=== PATIENT | female | born 1990 | race American Indian/Alaskan Native ===

== ENCOUNTER 2019-12-02 18:29 | Inpatient (IN) | payer OTHER, MEDICAID ==
[2019-12-02] MEDS ORDERED: LACTATED RINGERS 1,000 ML IV ONE (20:53)
[2019-12-02 21:23] LABS: Basophils % (Auto) 0.3 % (0.0-1.8); Eosinophils % (Auto) 0.4 % (0.0-4.3); Lymphocytes # (Auto) 1.9 K/mm3 (1.2-5.4); Mean Corpuscular HGB Conc 32 % (30-34); Mean Corpuscular Volume 65 fl (79-97); Monocytes # (Auto) 0.8 K/mm3 (0.0-0.8); Monocytes % (Auto) 9.2 % (0.0-7.3); Platelet Count 315 K/mm3 (140-440); Red Blood Count 3.39 M/mm3 (3.65-5.03); Red Cell Distribution Width 19.3 % (13.2-15.2)
[2019-12-02 21:45] LABS: Alanine Aminotransferase 9 units/L (7-56); Albumin 3.3 g/dL (3.9-5); BUN/Creatinine Ratio 12; Blood Urea Nitrogen 6 mg/dL (7-17); Calcium 8.8 mg/dL (8.4-10.2); Hemolysis Index 4
[2019-12-02] MEDS ORDERED: ONDANSETRON 4 MG/2 ML INJ IV PRN (22:38)
[2019-12-02] MEDS ORDERED: DOCUSATE SODIUM 100 MG CAP PO PRN (22:38)
[2019-12-02] MEDS ORDERED: ACETAMINOPHEN 325 MG TAB PO ONE (22:46)
--- NOTE | 2019-12-02 22:50 | History and Physical Report ---
History of Present Illness Date of examination: 12/02/19 Date of admission: 12/02/2019 Chief complaint: Contractions, vomiting. History of present illness: 29 year old female presents with complaint of contractions since 3 PM today and vomiting. Patient denies leaking of fluid or vaginal bleeding. Pt. reports good movement. Patient denies cough or shortness of breath. Patient states she receives care at [facility]; records are not available. significant for the following: obesity. labs have been drawn upon admission. Past History Past Medical History: no pertinent history (obesity) Past Surgical History: no surgical history [facility] History: denies: chlamydia, gonorrhea, hepatitis B, hepatitis C, herpes, HIV, syphilis, trichomonas Family/Genetic History: diabetes Social history: full code. denies: smoking, alcohol abuse, prescription drug abuse, IV drug use - Obstetrical History Expected Date of Delivery: 12/04/19 Actual Gestation: 39 Week(s) 6 Day(s) : 3 Para: 2 Hx # Term Pregnancies: 2 Number of Pregnancies: 0 Spontaneous Abortions: 0 Induced : 0 Number of Living Children: 2 Medications and Allergies Allergies Allergy/AdvReac Type Severity Reaction Status Date / Time No Known Allergies Allergy Unverified 01/12/16 18:46 Active Meds: Active Medications Docusate Sodium (Colace) 100 mg PO BID PRN PRN Reason: Constipation Ferrous Sulfate (Feosol) 325 mg PO TID [facility] Lactated Ringer's (Lactated Ringers) 1,000 mls @ 125 mls/hr IV DIRECT [facility] Multivitamins/Iron/Calcium ( Vitamin) 1 each PO QDAY [facility] Ondansetron HCl (Zofran) 4 mg IV Q8H PRN PRN Reason: Nausea And Vomiting Potassium Chloride (K-Dur) 10 meq PO ONCE ONE Stop: 12/02/19 22:43 Review of Systems All systems: negative (contractions, vomiting) - Vital Signs Vital signs: Vital Signs Pulse BP 103 H 110/58 12/02/19 18:49 12/02/19 18:49 Temp Pulse Resp BP Pulse Ox 100.3 F H 99 H 18 110/58 100 12/02/19 20:50 12/02/19 22:46 12/02/19 20:50 12/02/19 20:50 12/02/19 22:46 - Physical Exam Abdomen: Positive: normal appearance, soft, normal bowel sounds. Negative: distention, tenderness, guarding, rigidity Genitourinary (Female): Positive: normal external genitalia, normal perenium. Negative: perineal/vulvar lesions Vagina: Positive: normal moisture Cervix: Positive: ulceration. Negative: lesion, cyst noted, discharge, absent Uterus: Positive: enlarged Anus/Rectum: Positive: normal perianal skin Extremities: Positive: normal, edema - Obstetrical FHR: category 1 Uterine Contraction Monitor Mode: External Cervical Dilatation: 1.5 Cervical Effacement Percentage: 30 station: -3 Uterine Contraction Pattern: Irregular Results Result Diagrams: 12/02/19 21:10 12/02/19 21:10 Abnormal lab results 12/02/19 12/02/19 Range/Units 21:10 21:10 RBC 3.39 L (3.65-5.03) M/mm3 Hgb 7.0 L (10.1-14.3) gm/dl Hct 22.0 L (30.3-42.9) % MCV 65 L (79-97) fl MCH 21 L (28-32) pg RDW 19.3 H (13.2-15.2) % [place] % (Auto) 9.2 H (0.0-7.3) % Sodium 133 L (137-145) mmol/L Potassium 3.5 L (3.6-5.0) mmol/L Carbon Dioxide 18 L (22-30) mmol/L BUN 6 L (7-17) mg/dL Creatinine 0.5 L (0.7-1.2) mg/dL Albumin 3.3 L (3.9-5) g/dL All other labs normal. Assessment and Plan A: at 39 weeks, 5 days gestation. Maternal temp. elevation. P: Admit for observation. IV hydration. Labs. Continuous EFM. Consulted with Dr. Huggins re: this patient, complaints, interventions taken. No new orders received.
[2019-12-02] MEDS ORDERED: POTASSIUM CHLORIDE ER 10 MEQ TAB PO ONE (23:00)
[2019-12-02] MEDS ORDERED: LACTATED RINGERS 1,000 ML IV SCH (23:00)
[2019-12-03] MEDS ORDERED: fentaNYL 100 MCG/2 ML INJ IV ONE (00:03)
[2019-12-03] MEDS ORDERED: SODIUM CHLORIDE 0.9% 500 ML 500 ML IV ONE (06:20)
[2019-12-03 07:58] LABS: Bilirubin,Urine NEG (Negative); Blood,Urine NEG (Negative); Color,Urine Yellow (Yellow); Mucus,Urine FEW /HPF; Protein,Urine <15 mg/dL mg/dL (Negative); Urobilinogen,Urine < 2.0 mg/dL (<2.0)
[2019-12-03 08:05] LABS: Amphetamine Screen,Urine PRESUMPTIVE NEGATIVE; Benzodiazepines Screen,Urine PRESUMPTIVE NEGATIVE; Cannabinoid Screen,Urine PRESUMPTIVE NEGATIVE; Cocaine Screen,Urine PRESUMPTIVE NEGATIVE; Methadone Screen,Urine PRESUMPTIVE NEGATIVE; Opiate Screen,Urine PRESUMPTIVE NEGATIVE
--- NOTE | 2019-12-03 08:27 | Progress Note ---
Assessment and Plan A: at 39 weeks, 6 days gestation. Severe anemia. Temperature elevation. Nausea and vomiting. P: Await COVID results. PRBCs 1 unit; spoke with pt. re: this. Continue EFM (continuous). IV antiemetics. Subjective - Subjective Date of service: 12/03/19 Principal diagnosis: at 39 weeks, 6 days gestation; severe anemia Interval history: PRBCs have been ordered for pt. due to severe anemia and tachycardia. K-dur has been given due to mildly low potassium. COVID labs pending. Patient reports: movement normal, contractions, no new complaints, no loss of fluid, no vaginal bleeding Objective - Vital Signs Vital Signs: Vital Signs - 12hr 12/02/19 12/02/19 12/02/19 20:26 20:31 20:36 Temperature Pulse Rate 101 H 102 H 98 H Respiratory Rate Blood Pressure Blood Pressure [Right] O2 Sat by Pulse 99 99 100 Oximetry 12/02/19 12/02/19 12/02/19 20:41 20:46 20:50 Temperature 100.3 F H Pulse Rate 101 H 99 H 98 H Respiratory 18 Rate Blood Pressure Blood Pressure 110/58 [Right] O2 Sat by Pulse 100 100 100 Oximetry 12/02/19 12/02/19 12/02/19 20:51 20:56 21:01 Temperature Pulse Rate 96 H 93 H 99 H Respiratory Rate Blood Pressure Blood Pressure [Right] O2 Sat by Pulse 100 100 100 Oximetry 12/02/19 12/02/19 12/02/19 21:06 21:11 21:16 Temperature Pulse Rate 96 H 105 H 104 H Respiratory Rate Blood Pressure Blood Pressure [Right] O2 Sat by Pulse 100 100 100 Oximetry 12/02/19 12/02/19 12/02/19 21:21 21:26 21:30 Temperature Pulse Rate 101 H 97 H Respiratory Rate Blood Pressure Blood Pressure [Right] O2 Sat by Pulse 99 98 88 Oximetry 12/02/19 12/02/19 12/02/19 21:31 21:36 21:41 Temperature Pulse Rate 99 H 99 H 100 H Respiratory Rate Blood Pressure Blood Pressure [Right] O2 Sat by Pulse 100 100 100 Oximetry 12/02/19 12/02/19 12/02/19 21:46 21:51 21:56 Temperature Pulse Rate 99 H 99 H 98 H Respiratory Rate Blood Pressure Blood Pressure [Right] O2 Sat by Pulse 100 100 100 Oximetry 12/02/19 12/02/19 12/02/19 22:01 22:06 22:11 Temperature Pulse Rate 101 H 99 H 99 H Respiratory Rate Blood Pressure Blood Pressure [Right] O2 Sat by Pulse 100 100 100 Oximetry 12/02/19 12/02/19 12/02/19 22:16 22:21 22:26 Temperature Pulse Rate 101 H 98 H 101 H Respiratory Rate Blood Pressure Blood Pressure [Right] O2 Sat by Pulse 100 100 100 Oximetry 12/02/19 12/02/19 12/02/19 22:31 22:32 22:36 Temperature Pulse Rate 92 H 53 L 100 H Respiratory Rate Blood Pressure Blood Pressure [Right] O2 Sat by Pulse 100 93 100 Oximetry 12/02/19 12/02/19 12/02/19 22:41 22:46 22:51 Temperature Pulse Rate 105 H 99 H 100 H Respiratory Rate Blood Pressure Blood Pressure [Right] O2 Sat by Pulse 100 100 100 Oximetry 12/02/19 12/02/19 12/02/19 22:56 23:01 23:06 Temperature Pulse Rate 98 H 103 H 103 H Respiratory Rate Blood Pressure Blood Pressure [Right] O2 Sat by Pulse 100 100 100 Oximetry 12/02/19 12/02/19 12/03/19 23:11 23:16 01:32 Temperature Pulse Rate 86 99 H Respiratory 18 Rate Blood Pressure Blood Pressure [Right] O2 Sat by Pulse 100 100 Oximetry 12/03/19 12/03/19 12/03/19 01:38 07:10 08:00 Temperature 98.4 F Pulse Rate 105 H 96 H Respiratory 16 Rate Blood Pressure 107/58 120/60 Blood Pressure [Right] O2 Sat by Pulse Oximetry - Exam Abdomen: Present: normal appearance, soft. Absent: distention, tenderness, guarding, rigidity Uterus: Present: normal, fundal height above umbilicus. Absent: tenderness FHR: category 1 Uterine Contraction Monitor Mode: External Uterine Contraction Pattern: Irregular Uterine Contraction Intensity: Mild - Labs Labs: Abnormal Labs 12/02/19 12/02/19 12/03/19 21:10 21:10 00:56 RBC 3.39 L Hgb 7.0 L Hct 22.0 L MCV 65 L MCH 21 L RDW 19.3 H [place] % (Auto) 9.2 H Sodium 133 L Potassium 3.5 L Carbon Dioxide 18 L BUN 6 L Creatinine 0.5 L Albumin 3.3 L Urine WBC (Auto) Crossmatch See Detail 12/03/19 06:30 RBC Hgb Hct MCV MCH RDW [place] % (Auto) Sodium Potassium Carbon Dioxide BUN Creatinine Albumin Urine WBC (Auto) 7.0 H Crossmatch Laboratory Results - last 24 hr 12/02/19 12/02/19 12/02/19 21:10 21:10 21:10 WBC 8.6 RBC 3.39 L Hgb 7.0 L Hct 22.0 L MCV 65 L MCH 21 L MCHC 32 RDW 19.3 H Plt Count 315 Lymph % (Auto) 22.0 [place] % (Auto) 9.2 H Eos % (Auto) 0.4 Baso % (Auto) 0.3 Lymph # 1.9 [place] # 0.8 Eos # 0.0 Baso # 0.0 Seg Neutrophils % 68.1 Seg Neutrophils # 5.9 Sodium 133 L Potassium 3.5 L Chloride 99.2 Carbon Dioxide 18 L Anion Gap 19 BUN 6 L Creatinine 0.5 L Estimated GFR > 60 BUN/Creatinine Ratio 12 Glucose 85 Hemoglobin A1c Calcium 8.8 Total Bilirubin 0.30 AST 15 ALT 9 Alkaline Phosphatase 109 Lactate Dehydrogenase 165 C-Reactive Protein 0.40 Total Protein 6.9 Albumin 3.3 L Albumin/Globulin Ratio 0.9 Urine Color Urine Turbidity Urine pH Ur Specific [place] Urine Protein Urine Glucose (UA) Urine Ketones Urine Blood Urine Nitrite Urine Bilirubin Urine Urobilinogen Ur Leukocyte Esterase Urine WBC (Auto) Urine RBC (Auto) U Epithel Cells (Auto) Urine Mucus Urine Opiates Screen Urine Methadone Screen Ur Barbiturates Screen Ur Phencyclidine Scrn Ur Amphetamines Screen U Benzodiazepines Scrn Urine Cocaine Screen U Marijuana (THC) Screen Drugs of Abuse Note Syphilis IgG Antibody Hep Bs Antigen Rubella IgG Antibody Blood Type Antibody Screen Crossmatch 12/03/19 12/03/19 12/03/19 00:49 00:49 00:49 WBC RBC Hgb Hct MCV MCH MCHC RDW Plt Count Lymph % (Auto) [place] % (Auto) Eos % (Auto) Baso % (Auto) Lymph # [place] # Eos # Baso # Seg Neutrophils % Seg Neutrophils # Sodium Potassium Chloride Carbon Dioxide Anion Gap BUN Creatinine Estimated GFR BUN/Creatinine Ratio Glucose Hemoglobin A1c 5.4 Calcium Total Bilirubin AST ALT Alkaline Phosphatase Lactate Dehydrogenase C-Reactive Protein Total Protein Albumin Albumin/Globulin Ratio Urine Color Urine Turbidity Urine pH Ur Specific [place] Urine Protein Urine Glucose (UA) Urine Ketones Urine Blood Urine Nitrite Urine Bilirubin Urine Urobilinogen Ur Leukocyte Esterase Urine WBC (Auto) Urine RBC (Auto) U Epithel Cells (Auto) Urine Mucus Urine Opiates Screen Urine Methadone Screen Ur Barbiturates Screen Ur Phencyclidine Scrn Ur Amphetamines Screen U Benzodiazepines Scrn Urine Cocaine Screen U Marijuana (THC) Screen Drugs of Abuse Note Syphilis IgG Antibody Non-reactive Hep Bs Antigen Non-reactive Rubella IgG Antibody Immune Blood Type Antibody Screen Crossmatch 12/03/19 12/03/19 12/03/19 00:56 06:30 06:30 WBC RBC Hgb Hct MCV MCH MCHC RDW Plt Count Lymph % (Auto) [place] % (Auto) Eos % (Auto) Baso % (Auto) Lymph # [place] # Eos # Baso # Seg Neutrophils % Seg Neutrophils # Sodium Potassium Chloride Carbon Dioxide Anion Gap BUN Creatinine Estimated GFR BUN/Creatinine Ratio Glucose Hemoglobin A1c Calcium Total Bilirubin AST ALT Alkaline Phosphatase Lactate Dehydrogenase C-Reactive Protein Total Protein Albumin Albumin/Globulin Ratio Urine Color Yellow Urine Turbidity Clear Urine pH 6.0 Ur Specific [place] 1.013 Urine Protein <15 mg/dl Urine Glucose (UA) Neg Urine Ketones 80 Urine Blood Neg Urine Nitrite Neg Urine Bilirubin Neg Urine Urobilinogen < 2.0 Ur Leukocyte Esterase Tr Urine WBC (Auto) 7.0 H Urine RBC (Auto) 2.0 U Epithel Cells (Auto) 1.0 Urine Mucus Few Urine Opiates Screen Presumptive negative Urine Methadone Screen Presumptive negative Ur Barbiturates Screen Presumptive negative Ur Phencyclidine Scrn Presumptive negative Ur Amphetamines Screen Presumptive negative U Benzodiazepines Scrn Presumptive negative Urine Cocaine Screen Presumptive negative U Marijuana (THC) Screen Presumptive negative Drugs of Abuse Note Disclamer Syphilis IgG Antibody Hep Bs Antigen Rubella IgG Antibody Blood Type O POSITIVE Antibody Screen Negative Crossmatch See Detail
[2019-12-03] MEDS ORDERED: SODIUM CHLORIDE 0.9% 250ML 250 ML ONE (09:04)
[2019-12-03] MEDS: FERROUS SULFATE 325 MG TAB PO SCH ×3 (09:11→21:21)
[2019-12-03] MEDS ORDERED: PRENATAL VIT27-FE FUMARATE-FOLIC ACID VIT TAB PO SCH (10:00)
[2019-12-03 14:27] LABS: Basophils % (Auto) 0.3 % (0.0-1.8); Eosinophils # (Auto) 0.1 K/mm3 (0.0-0.4); Eosinophils % (Auto) 0.7 % (0.0-4.3); Hematocrit 23.6 % (30.3-42.9); Hemoglobin 7.7 gm/dl (10.1-14.3); Lymphocytes # (Auto) 1.3 K/mm3 (1.2-5.4); Lymphocytes % (Auto) 19.5 % (13.4-35.0); Mean Corpuscular HGB Conc 33 % (30-34); Monocytes # (Auto) 0.7 K/mm3 (0.0-0.8); Monocytes % (Auto) 10.9 % (0.0-7.3); Platelet Count 319 K/mm3 (140-440)
[2019-12-03 14:31] LABS: Mean Corpuscular Volume 67 fl (79-97); Red Cell Distribution Width 21.8 % (13.2-15.2)
[2019-12-03] MEDS ORDERED: ACETAMINOPHEN 325 MG TAB ONE ×2 (14:36→14:46)
[2019-12-03 14:50] LABS: Alanine Aminotransferase 8 units/L (7-56); Albumin 3.2 g/dL (3.9-5); BUN/Creatinine Ratio 12; Blood Urea Nitrogen 6 mg/dL (7-17); Calcium 8.5 mg/dL (8.4-10.2); Hemolysis Index 0
--- NOTE | 2019-12-03 16:00 | Event Note ---
Date: 12/03/19 Was able to obtain records on computer. EDC 12/24/2019. EGA 37 weeks gestation. This EDC was based on 9.6 week US. Patient had late care, limited care. She made one visit in 09/2019 and one visit in 10/2019. She was referred to [facility] but did not keep her appointment. Her was significant for anemia (was prescribed iron but pt. states she did not take), PICA, MO, LGA, elevated 1 hour sugar test (pt. did not return for her 3 hour OGTT), uterine fundal fibroid. labs are as follows: O+, antibody screen negative, rubella nonimmune, hepatitis B surface antigen negative, HIV negative, RPR nonreactive, varicella immune, hemoglobin electrophoresis AA, 1 hour sugar test 147, gonorrhea negative, chlamydia negative, trichomonas negative, GBS unknown (no test done at office as pt. has not been seen since 32 weeks gestation). Patient now complains of headache and dizziness. She just took a Tylenol for headache. She ate lunch and denies nausea or vomiting. COVID swab was taken this morning with results expected in 24 hours per lab. Patient states contractions have mostly resolved. No leaking of fluid or vaginal bleeding. Active movement reported by patient and FHR tracing is category 1. [address] Mondragon re: this patient. Dr. Mondragon recommends hospitalist consult. Consult put in for patient to see hospitalist. Discussed this with patient.
--- NOTE | 2019-12-03 20:00 | Consultation ---
History of Present Illness - Reason for Consult Consult date: 12/03/19 Dizziness, Headache Requesting physician: DOMINIQUE MONDRAGON - History of Present Illness 29 YO Female with obesity at 37 weeks gestation. Consult placed by Dr. Mondragon for headache and dizziness. Patient seen and evaluated in her room. Patient denies fever, chills, chest pain, palpitations, blurred vision, dizziness, productive cough, shortness of breath, loss of consciousness, or known ill co ntacts. Patient states that she experienced dizziness and mild headache after being given medication for her contractions. Patient states that her symptoms have improved since medication to ease her contractions has been discontinued. Patient states that she feels better at the time of my exam and acknowledges no current complaints. No reported nursing events. Past History Past Medical History: other (See HPI) Past Surgical History: No surgical history, Other (Reviewed) Social history: single, full code. denies: smoking, alcohol abuse, prescription drug abuse, IV drug use Family history: no significant family history (Reviewed) Medications and Allergies Allergies Allergy/AdvReac Type Severity Reaction Status Date / Time No Known Allergies Allergy Unverified 01/12/16 18:46 Active Meds: Active Medications Docusate Sodium (Colace) 100 mg PO BID PRN PRN Reason: Constipation Ferrous Sulfate (Feosol) 325 mg PO TID [facility] Last Admin: 12/03/19 14:40 Dose: 325 mg Documented by: Multivitamins/Iron/Calcium ( Vitamin) 1 each PO QDAY [facility] Last Admin: 12/03/19 09:11 Dose: 1 each Documented by: Ondansetron HCl (Zofran) 4 mg IV Q8H PRN PRN Reason: Nausea And Vomiting Last Admin: 12/03/19 01:30 Dose: 4 mg Documented by: Review of Systems Constitutional: no weight loss, no weight gain, no fever, no chills Ears, nose, mouth and throat: no ear pain, no ear discharge, no tinnitis, no decreased hearing, no nose pain, no nasal congestion, no nasal discharge Breasts: no change in shape, no swelling, no mass Cardiovascular: no chest pain, no orthopnea, no palpitations, no edema, no syncope Respiratory: no cough, no cough with sputum, no hemoptysis Gastrointestinal: no abdominal pain, no nausea, no vomiting, no constipation, no hematemesis Genitourinary Female: no pelvic pain, no flank pain, no menorrhagia, no dysuria, no urgency Rectal: no pain, no incontinence, no bleeding Musculoskeletal: no neck stiffness, no neck pain, no shooting arm pain, no arm numbness/tingling, no leg numbness/tingling Integumentary: no rash, no pruritis, no redness, no sores, no wounds Neurological: other (No nystagmus), no transient paralysis, no paralysis, no weakness, no parathesias, no tingling, no seizures, no tremors, no ataxia, no vertigo, no headaches, no migraines, no balance difficulties, no gait dysfunction, no motor disturbance, no sensory deficit, no loss of vision Psychiatric: no anxiety, no memory loss, no change in sleep habits, no insomnia, no change in appetite, no suicidal ideation, no disorientation Endocrine: no cold intolerance, no polyphagia, no polydipsia Hematologic/Lymphatic: no easy bruising, no lymphadenopathy Allergic/Immunologic: no wheezing, no persistent infections, no anaphylaxis Exam - Constitutional Vitals: Temp Pulse Resp BP Pulse Ox 98.6 F 102 H 18 120/57 89 12/03/19 18:52 12/03/19 18:39 12/03/19 18:52 12/03/19 18:39 12/03/19 15:24 General appearance: Present: obese - EENT Eyes: Present: PERRL ENT: hearing intact, clear oral mucosa - Neck Neck: Present: supple, normal ROM - Respiratory Respiratory effort: normal Respiratory: bilateral: CTA - Cardiovascular Heart Sounds: Present: S1 & S2. Absent: rub, click - Extremities Extremities: pulses symmetrical, No edema Peripheral Pulses: within normal limits - Abdominal General gastrointestinal: Present: soft, non-tender, non-distended, normal bowel sounds Female genitourinary: Present: normal - Integumentary Integumentary: Present: clear, warm, dry - Musculoskeletal Musculoskeletal: gait normal, strength equal bilaterally - Psychiatric Psychiatric: appropriate mood/affect, intact judgment & insight - Neurologic Neurologic: CNII-XII intact, moves all extremities Results - Labs CBC & Chem 7: 12/03/19 13:59 12/03/19 13:59 Labs: Abnormal lab results 12/02/19 12/02/19 12/03/19 Range/Units 21:10 21:10 00:56 RBC 3.39 L (3.65-5.03) M/mm3 Hgb 7.0 L (10.1-14.3) gm/dl Hct 22.0 L (30.3-42.9) % MCV 65 L (79-97) fl MCH 21 L (28-32) pg RDW 19.3 H (13.2-15.2) % [place] % (Auto) 9.2 H (0.0-7.3) % Sodium 133 L (137-145) mmol/L Potassium 3.5 L (3.6-5.0) mmol/L Carbon Dioxide 18 L (22-30) mmol/L BUN 6 L (7-17) mg/dL Creatinine 0.5 L (0.7-1.2) mg/dL Glucose (65-100) mg/dL Albumin 3.3 L (3.9-5) g/dL Urine WBC (Auto) (0.0-6.0) /HPF Crossmatch See Detail 12/03/19 12/03/19 12/03/19 Range/Units 06:30 13:59 13:59 RBC 3.50 L (3.65-5.03) M/mm3 Hgb 7.7 L (10.1-14.3) gm/dl Hct 23.6 L (30.3-42.9) % MCV 67 L (79-97) fl MCH 22 L (28-32) pg RDW 21.8 H (13.2-15.2) % [place] % (Auto) 10.9 H (0.0-7.3) % Sodium 136 L (137-145) mmol/L Potassium (3.6-5.0) mmol/L Carbon Dioxide (22-30) mmol/L BUN 6 L (7-17) mg/dL Creatinine 0.5 L (0.7-1.2) mg/dL Glucose 102 H (65-100) mg/dL Albumin 3.2 L (3.9-5) g/dL Urine WBC (Auto) 7.0 H (0.0-6.0) /HPF Crossmatch Assessment and Plan - Patient Problems (1) Headache Current Visit: Yes Status: Acute Qualifiers: Intractability: not intractable Plan to address problem: Recommend supportive care, neuro check, CT scan of the head without contrast as per primary team if recurrent symptoms or mental status changes. (2) Dizziness Current Visit: Yes Status: Acute Plan to address problem: Resolved, suspect secondary to medication, supportive care
[2019-12-03] MEDS ORDERED: ACETAMINOPHEN 325 MG TAB PO PRN (21:41)
[2019-12-04 09:52] VITALS: BP 103/57
--- NOTE | 2019-12-04 10:36 | Progress Note ---
Assessment and Plan A: at 37 1/7 weeks gestation (correct EDC 12/24/2019). MO. Nausea and vomiting resolved. Headache and dizziness resolved. Anemia, on oral iron supplements. P: Consulted with Dr. Mondragon re: patient and all of the above. Dr. Mondragon states to discharge patient home today. Discussed with patient discharge instructions and warning signs. Advised patient to perform daily movement counting. Advised pt. to take iron TID at home and to continue PNV daily at home. Advised pt. to go to [facility] tomorrow 12/05/2019 to be seen by a provider and to take her 3 hour sugar test. Advised pt. that she need to obtain a referral to [facility] (pt. had previously missed her [facility] appt.) when she goes to [facility] tomorrow (to be seen this week due to MO and LGA). Patient voiced understanding of all instructions. Subjective - Subjective Date of service: 12/04/19 Principal diagnosis: at 37 weeks, 1 days gestation; severe anemia Interval history: Patient's coronavirus swab is negative; flu swab negative. Patient's H&H have improved (now 7.7 and 23.2) after blood transfusion. Patient continues to receive oral iron TID. She states she is now feeling better. Patient states nausea and vomiting have resolved. She states headache and dizziness have resolved. Irregular mild conractions intermittently but not in active labor at this time. Patient reports active movement. She denies leaking of water or vaginal bleeding. No contractions at the present time. BPP 8/8. EMMANUELLE 12.6 cm. Was seen by hospitalist yesterday. Patient reports: movement normal, no new complaints, no loss of fluid, no vaginal bleeding, no contractions Objective - Vital Signs Vital Signs: Vital Signs - 12hr 12/04/19 12/04/19 12/04/19 00:02 00:04 04:15 Temperature 98.4 F 97.8 F Pulse Rate 91 H Respiratory 24 Rate Blood Pressure 119/63 Blood Pressure 119/63 [Right] O2 Sat by Pulse 100 100 Oximetry 12/04/19 12/04/19 04:22 09:51 Temperature Pulse Rate 92 H 93 H Respiratory Rate Blood Pressure 125/58 103/57 Blood Pressure [Right] O2 Sat by Pulse Oximetry - Exam Abdomen: Present: normal appearance, soft. Absent: distention, tenderness, guarding, rigidity Uterus: Present: normal, fundal height above umbilicus. Absent: tenderness FHR: category 1 Uterine Contraction Monitor Mode: External Uterine Contraction Pattern: Absent Extremities: normal - Labs Labs: Abnormal Labs 12/02/19 12/02/19 12/03/19 21:10 21:10 00:56 RBC 3.39 L Hgb 7.0 L Hct 22.0 L MCV 65 L MCH 21 L RDW 19.3 H [place] % (Auto) 9.2 H Sodium 133 L Potassium 3.5 L Carbon Dioxide 18 L BUN 6 L Creatinine 0.5 L Glucose Albumin 3.3 L Urine WBC (Auto) Crossmatch See Detail 12/03/19 12/03/19 12/03/19 06:30 13:59 13:59 RBC 3.50 L Hgb 7.7 L Hct 23.6 L MCV 67 L MCH 22 L RDW 21.8 H [place] % (Auto) 10.9 H Sodium 136 L Potassium Carbon Dioxide BUN 6 L Creatinine 0.5 L Glucose 102 H Albumin 3.2 L Urine WBC (Auto) 7.0 H Crossmatch Laboratory Results - last 24 hr 12/02/19 12/03/19 12/03/19 20:55 00:56 13:59 WBC RBC Hgb Hct MCV MCH MCHC RDW Plt Count Lymph % (Auto) [place] % (Auto) Eos % (Auto) Baso % (Auto) Lymph # [place] # Eos # Baso # Seg Neutrophils % Seg Neutrophils # Sodium Potassium Chloride Carbon Dioxide Anion Gap BUN Creatinine Estimated GFR BUN/Creatinine Ratio Glucose Calcium Total Bilirubin AST ALT Alkaline Phosphatase Total Protein Albumin Albumin/Globulin Ratio Coronavirus (PCR) Negative HIV 1&2 Antibody Rapid Neg HIV P24 Antigen Neg Crossmatch See Detail 12/03/19 12/03/19 13:59 13:59 WBC 6.8 RBC 3.50 L Hgb 7.7 L Hct 23.6 L MCV 67 L MCH 22 L MCHC 33 RDW 21.8 H Plt Count 319 Lymph % (Auto) 19.5 [place] % (Auto) 10.9 H Eos % (Auto) 0.7 Baso % (Auto) 0.3 Lymph # 1.3 [place] # 0.7 Eos # 0.1 Baso # 0.0 Seg Neutrophils % 68.6 Seg Neutrophils # 4.7 Sodium 136 L Potassium 3.9 Chloride 103.4 Carbon Dioxide 22 Anion Gap 15 BUN 6 L Creatinine 0.5 L Estimated GFR > 60 BUN/Creatinine Ratio 12 Glucose 102 H Calcium 8.5 Total Bilirubin 0.30 AST 15 ALT 8 Alkaline Phosphatase 106 Total Protein 6.4 Albumin 3.2 L Albumin/Globulin Ratio 1.0 Coronavirus (PCR) HIV 1&2 Antibody Rapid HIV P24 Antigen Crossmatch
--- NOTE | 2019-12-04 11:32 | Discharge Summary ---
Providers - Providers Date of Admission: 12/03/19 22:01 Date of discharge: 12/04/19 Attending physician: LEONIDAS SAL MD 12/03/19 17:01 Consult to Physician [CONS] Routine Comment: Consulting Provider: JUSTYN PEACOCK Physician Instructions: Reason For Exam: Dizziness, headache Primary care physician: TRENA MONTES Hospitalization Reason for admission: other (severe anemia, nausea and vomiting (resolved), elevated temp. (resolved)) Delivery: other (37 weeks, 1 day gestation, undelivered) Discharge diagnosis: other (37 week 1 day gestation, undelivered; anemia. Resolution of nausea, vomiting, and elevated temperature. ) Pertinent studies: Labs, US Hospital course: Stable hospital course. Condition at discharge: Good Disposition: DC-01 TO HOME OR SELFCARE - Discharge Diagnoses (1) Term delivered Status: Acute (2) Anemia affecting Status: Acute Plan - Provider Discharge Summary Activity: other (Rest at home; count movements daily; continue to take iron supplement 3 times per day; continue vitamin daily) Diet: routine Instructions: other (Go to [facility] tomorrow and obtain [facility] appointment this week) Additional instructions: Call your doctor immediately for: * Fever > 100.5 * Severe persistent headache * Shortness of breath * Reddened, hot, painful area to leg or breast - Follow up plan Follow up: DOMINIQUE BOUDREAUX MD [Staff Physician] - 12/05/19 Forms: [facility] Discharge Summary
--- NOTE | 2019-12-04 11:42 | Ultrasound Report ---
ULTRASOUND OBSTETRIC ULTRASOUND BIOPHYSICAL PROFILE INDICATION: Estimate weight, assess biophysical profile. Clinical Gestational Age (GA): 40 weeks TECHNIQUE: Transabdominal. COMPARISON: None available. FINDINGS: There is a single intrauterine . Biparietal Diameter = 9.77 cm = 40 weeks, 0 day(s). Head Circumference = 34.62 cm = 40 weeks, 1 day(s). Abdominal Circumference = 36.19 cm = 40 weeks, 1 day(s). Femur Length = 7.82 cm = 40 weeks, 0 day(s). Average Ultrasound Age (AUA) = 40 weeks, 1 day(s). Heart Rate: 151 beats per minute. Estimated Weight in grams (if calculated): 3977 Estimated Weight Growth Percentile (if calculated): 78 Position: cephalic. Cervix: closed. Length in cm (if measured): Not measured Placenta: Not well visualized. Amniotic Fluid Volume: normal Amniotic Fluid Index (EMMANUELLE) in cm (if calculated): 12.6. Maternal Adnexa: No significant abnormality. BIOPHYSICAL PROFILE BREATHING MOVEMENT = 2 GROSS BODY MOVEMENT = 2 TONE = 2 QUALITATIVE AMNIOTIC FLUID VOLUME = 2 TOTAL BIOPHYSICAL SCORE = 8/8 IMPRESSION: 1. Single, living intrauterine with estimated sonographic age of 40 weeks, 1 day(s). 2. No significant sonographic abnormality. Signer Name: Ponce Rincon MD Signed: 12/04/2019 11:38 AM Workstation Name: [id number]
== END 2019-12-04 11:45 | disposition home or self-care (01) | DRG 833 ==
LOC: APU 18:29 → TRG 18:29 → LD 12-03 → OBSVTOIN 12-03 22:01
PROVIDERS: ADMIT Obstetrics & Gynecology; ATTEND Obstetrics & Gynecology
DX: O99.013 Anemia complicating pregnancy, third trimester (principal); O99.353 Diseases of the nervous system complicating pregnancy, third trimester; D64.9 Anemia, unspecified; R51 Headache; R42 Dizziness and giddiness; E66.9 Obesity, unspecified; O99.213 Obesity complicating pregnancy, third trimester; Z3A.37 37 weeks gestation of pregnancy
CPT/HCPCS: 36415; 76816; 76819; 80053; 80307; 81001; 83036; 83615; 84145; 85025; 86140; 86592; 86706; 86762; 86850; 86900; 86901; 86920; 87086; 87635; 87806; G0378; J2405; J3010; J7050; J7120; P9016